=== PATIENT | female | born 1970 | race Caucasian/White ===

== ENCOUNTER 2021-01-25 20:40 | Emergency (ER) | payer OTHER, SELFPAY ==
[2021-01-25 20:49] VITALS: BP 143/85; PULSE 105; RESP 18; TEMP 36.5; O2SAT 98
--- NOTE | 2021-01-25 20:53 | ECG_ITS ---
Measurements Intervals [place] Rate: 105 P: 76 VT: 140 QRS: 72 QRSD: 92 T: 19 QT: 276 QTc: 366 Interpretive Statements SINUS TACHYCARDIA POSSIBLE LEFT ATRIAL ENLARGEMENT NONSPECIFIC ST & T-WAVE ABNORMALITY- ANTEROLAT/INF LEADS BASELINE ARTIFACT- I, II, AVR, AVL ABNORMAL ECG Electronically Signed On 01-26-2021 6:26:57 CDT by Bryce Saleh D.O.
[2021-01-25 21:08] LABS: Basophils Absolute Auto 0.1 K/mm3 (0.0-0.1); Basophils Percent Auto 1.3 % (0.2-1.2); Eosinophils Absolute Auto 0.2 K/mm3 (0-0.3); Eosinophils Percent Auto 3.5 % (0-4.4); Hematocrit 42.8 % (37.0-47.0); Hemoglobin 14.4 g/dL (12.0-15.0); Immature Granulocyte Absolute 0.01 K/mm3 (0.00-0.031); Immature Granulocyte Percent A 0.2 % (0-0.5); Lymphocytes Absolute Auto 2.01 K/mm3 (0.9-3.2); Lymphocytes Percent Auto 33.5 % (18.3-44.2); Mean Corpuscular HGB Conc 33.6 g/dl (32-36); Mean Corpuscular Hemoglobin 32.4 pg (26-34); Mean Corpuscular Volume 96.4 fl (80-100); Mean Platelet Volume 8.6 fl (7.4-10.4); Monocytes Absolute Auto 0.6 K/mm3 (0.1-0.6); Monocytes Percent Auto 9.2 % (2.6-8.5); Neutrophils Absolute Auto 3.1 K/mm3 (1.3-6.7); Neutrophils Percent Auto 52.3 % (45.5-73.1); Platelet Count Result 305 k/mm3 (150-375); Red Blood Count 4.44 M/mm3 (4.2-5.4)
[2021-01-25 21:18] LABS: Anion Gap 9 mmol/L (8-16); Blood Urea Nitrogen 20 mg/dL (7-17); Calcium 9.7 mg/dL (8.4-10.2); Carbon Dioxide 30 mmol/L (22-30); Chloride 99 mmol/L (98-107); Estimated Glomerular Filt Rate > 60; Glucose 89 mg/dL (65-105); Potassium 3.5 mmol/L (3.4-5.0); Sodium 138 mmol/L (137-145)
--- NOTE | 2021-01-25 21:41 | ED.RECABL ---
HPI - Recheck/Abnormal Lab/Rx General Chief Complaint: Recheck/Abnormal Lab/Rx Stated Complaint: abnormal labs Time Seen by Provider: 01/25/21 21:34 Source: old records reviewed History of Present Illness HPI narrative: Patient presents emergency department from home for hypokalemia. Patient states that she has been having problems with allergic reactions and gone to see an carrier washer today states he had an outpatient lab work and she was called this evening stating that her potassium was critically low at 2.7 she can come the emergency department for further evaluations patient states that she has had occasional feelings of anxiety today with may be some heart palpitations but denies any current complaints denies any fevers or chills chest pain shortness of breath or any other symptoms states she is never had a problem with hypokalemia before Related Data Allergies Allergy/AdvReac Type Severity Reaction Status Date / Time metoclopramide Allergy Mild JITTERY/RES Verified 01/25/21 21:44 TLESSNESS meperidine Allergy Unknown Other Verified 01/25/21 21:44 morphine Allergy Unknown Other Verified 01/25/21 21:44 Review of Systems Review of Systems: Narrative: Gen.: Denies fevers or chills ENT: Denies congestion Respiratory: Denies shortness of breath or cough CV: Denies chest pain occasional palpitations GI: Denies abdominal pain nausea, emesis or diarrhea Musculoskeletal: Denies back pain or muscle pain Neuro: Denies numbness, tingling, weakness or focal weakness Skin: Denies rash Except as documented, all other systems reviewed and negative [facility] Past Medical History Medical History (Updated 01/25/21 @ 21:44 by Avery Esteban DO) Patient denies significant medical history Family History Family History (Updated 10/04/13 @ 14:45 by DOCTOR UNKNOWN) Other Hypertension Social History Social History Smoking status: Never smoker Alcohol intake: current Exam Narrative: Exam Narrative: APPEARANCE: No acute distress, nontoxic, resting in bed EYES: EOMI HEENT: Normocephalic, atraumatic, RESPIRATORY: No respiratory distress Clear to auscultation bilaterally with no rhonchi wheezing or rales. CARDIOVASCULAR: Regular rate and rhythm without murmurs rubs or gallops. ABDOMINAL: Soft, nontender, nondistended, no rebound or guarding MUSCULOSKELETAl: Moves all extremities. NEURO: Awake and alert. Following commands, speech normal, no focal deficits SKIN:: Warm, dry. No rashes lesions or abrasions PSYCHIATRIC: Normal affect/mood, Course Course Emergency Course: Discussed with patient results of workup and diagnosis. Discussed need for follow-up with primary care, proper use of medication, and reasons to return to the emergency department. Patient understands and agrees to current treatment plan Vital Signs Vital signs: Vital Signs Temperature 97.7 F 01/25/21 20:49 Pulse Rate 105 H 01/25/21 20:49 Respiratory Rate 18 01/25/21 20:49 Blood Pressure 143/85 H 01/25/21 20:49 Pulse Oximetry 98 01/25/21 20:49 Temperature 97.7 F 01/25/21 20:49 Pulse Rate 105 H 01/25/21 20:49 Respiratory Rate 18 01/25/21 20:49 Blood Pressure 143/85 H 01/25/21 20:49 Pulse Oximetry 98 01/25/21 20:49 MDM - Recheck/Abnormal Lab/Rx Lab Data Result diagrams: 01/25/21 21:02 01/25/21 21:02 Labs: Lab Results 01/25/21 01/25/21 Range/Units 21:02 21:02 WBC 6.0 (4.5-10.0) K/mm3 RBC 4.44 (4.2-5.4) M/mm3 Hgb 14.4 (12.0-15.0) g/dL Hct 42.8 (37.0-47.0) % MCV 96.4 (80-100) fl MCH 32.4 (26-34) pg MCHC 33.6 (32-36) g/dl RDW 12.0 (11.5-14.5) % Plt Count 305 (150-375) k/mm3 MPV 8.6 (7.4-10.4) fl Immature Gran % (Auto) 0.2 (0-0.5) % Neut % (Auto) 52.3 (45.5-73.1) % Lymph % (Auto) 33.5 (18.3-44.2) % [place] % (Auto) 9.2 H (2.6-8.5) % Eos % (Auto) 3.5 (0-4.4) % Baso % (Auto)
[2021-01-25 21:53] VITALS: BP 133/87; PULSE 89; RESP 15; O2SAT 98
== END 2021-01-25 22:13 | disposition home or self-care (01) ==
LOC: ANHED 21:54
PROVIDERS: Emergency Provider Emergency Medicine
DX: E87.6 Hypokalemia (principal); R00.0 Tachycardia, unspecified; R94.31 Abnormal electrocardiogram [ECG] [EKG]
CPT/HCPCS: 36415; 80048; 83735; 85025; 93005; 99283